=== PATIENT | female | born 1940 | race Caucasian/White ===

== ENCOUNTER 2019-12-13 11:48 | Emergency (ER) | payer MEDICARE, OTHER ==
[~2019-12-13] VITALS: Ht 157.5 cm; Wt 86.9 kg
--- NOTE | 2019-12-13 12:12 | NUR ---
PT STATES "I HAVE HAD FIVE BLADDER INFECTIONS RECENTLY AND I THINK SOMETHING IS WRONG WITH MY KIDNEYS" PT WITH FLANK PAIN BILATERALLY. UNABLT TO PROVIDE UA AT THIS TIME
--- NOTE | 2019-12-13 12:18 | NUR ---
EDMD IN TO EVAL PT
--- NOTE | 2019-12-13 12:32 | NUR ---
PT GIVEN WATER PER ERMD OK.
[2019-12-13 12:58] LABS: BASOPHILS % (AUTO) 1 % (0-1); EOSINOPHILS % (AUTO) 5 % (1-7); LYMPHOCYTES % (AUTO) 17 % (22-44); MEAN CORPUSCULAR HEMOGLOBIN 27.2 pg (27.0-34.8); MEAN CORPUSCULAR HGB CONC 32.3 g/dL (32.4-35.8); MEAN PLATELET VOLUME 9.1 fL (7.4-10.4); MONOCYTES % (AUTO) 10 % (2-9); NEUTROPHILS % (AUTO) 68 % (42-75); PLATELET COUNT 181 x10^3/uL (130-400); RED BLOOD COUNT 4.62 x10^6/uL (3.82-5.3); RED CELL DISTRIBUTION WIDTH 15.3 % (9.6-15.2)
[2019-12-13 13:00] LABS: MD NO
[2019-12-13 13:09] LABS: ALBUMIN 3.6 g/dL (3.4-5.0); ANION GAP 6 mmol/L (5-15); CALCIUM 9.2 mg/dL (8.5-10.1); CHLORIDE 107 mmol/L (98-107); CREATININE 1.05 mg/dL (0.55-1.02)
[2019-12-13 13:58] VITALS: BP 162/73
[2019-12-13 14:07] LABS: MICROSCOPIC INDICATED
== END 2019-12-13 15:54 | disposition home or self-care (01) ==
LOC: ED 12:55
DX: N30.00 Acute cystitis without hematuria (principal); I10 Essential (primary) hypertension; E11.9 Type 2 diabetes mellitus without complications; Z85.528 Personal history of other malignant neoplasm of kidney
CPT/HCPCS: 36415; 80048; 81001; 82040; 85025; 87086; 99283

== ENCOUNTER 2020-08-02 09:12 | Outpatient (CLI) | payer MEDICARE ==
[~2020-08-02 09:12] MED LIST: DULA0.75 SQ; ERTA1VIA4 IV; GABA-826 PO; INSU100I13 SQ-INSULIN; LEVO137T2 PO; LINE600T15 PO; MERO1PIG IV; SIMV40TA20 PO; SITA1TBM7 PEG
[2020-08-02] MEDS ORDERED: DULA0.75 INJ (10:01)
[2020-08-02] MEDS ORDERED: INSU100I13 SC (10:01)
[2020-08-02] MEDS ORDERED: LEVO137T3 PO (10:01)
[2020-08-02] MEDS ORDERED: MAGN250T8 PO (10:01)
[2020-08-02] MEDS ORDERED: CRAN500T PO (10:01)
[2020-08-02] MEDS ORDERED: SITA1TBM4 PO (10:01)
[2020-08-02] MEDS ORDERED: GABA100C PO (10:01)
[2020-08-02] MEDS ORDERED: ERTA1VIA4 IV (10:01)
[2020-08-02] MEDS ORDERED: Elderberry PO (10:01)
[2020-08-02] MEDS ORDERED: ZINC50CA PO (10:01)
[2020-08-02] MEDS ORDERED: ACET-2065 PO (10:01)
[2020-08-02] MEDS ORDERED: Vitamin B12 PO (10:01)
[2020-08-02] MEDS ORDERED: CHOL10003 PO (10:01)
[2020-08-02] MEDS ORDERED: ASCO100018 PO (10:01)
[2020-08-02 10:25] LABS: INTERNATIONAL NORMALIZED RATIO 1.08 (0.93-1.1); PROTHROMBIN TIME 11.5 Seconds (9.6-11.5)
[2020-08-02 10:26] LABS: ALBUMIN 3.4 g/dL (3.4-5.0); ANION GAP 9 mmol/L (5-15); CALCIUM 9.2 mg/dL (8.5-10.1); CHLORIDE 108 mmol/L (98-107)
[2020-08-02 10:30] LABS: ALANINE AMINOTRANSFERASE 38 U/L (12-78); ALKALINE PHOSPHATASE 108 U/L (45-117); BILIRUBIN,TOTAL 0.3 mg/dL (0.2-1.0); CREATININE 0.81 mg/dL (0.55-1.02); TOTAL PROTEIN 7.5 g/dL (6.4-8.2)
== END 2020-08-02 23:59 | disposition home or self-care (01) ==
LOC: STAR 09:12
PROVIDERS: ATTEND Urology
DX: Z01.818 Encounter for other preprocedural examination (principal); N20.1 Calculus of ureter; I25.2 Old myocardial infarction; R94.31 Abnormal electrocardiogram [ECG] [EKG]; Z20.822 Contact with and (suspected) exposure to COVID-19
CPT/HCPCS: 36415; 80053; 85610; 93005; U0003; U0005

== ENCOUNTER 2020-08-07 10:03 | Day surgery (SDC) | payer MEDICARE ==
[~2020-08-07] VITALS: Ht 157.5 cm; Wt 82.8 kg
[~2020-08-07 10:03] MED LIST changes: +ACET-2065 PO; +ASCO100018 PO; +CHOL10003 PO; +CRAN500T PO; +DULA0.75 INJ; +Elderberry PO; +GABA100C PO; +INSU100I13 SC; +LEVO137T3 PO; +MAGN250T8 PO; +OMNIPAQUE 350 MG/ML, 50 ML BOTTLE ONE; +SITA1TBM4 PO; +Vitamin B12 PO; +ZINC50CA PO
[2020-08-07] MEDS ORDERED: FENTANYL PF 250 MCG/5ML ONE (10:23)
[2020-08-07] MEDS ORDERED: ONDANSETRON 2MG/ML, 2ML IVPush PRN (10:30)
[2020-08-07] MEDS ORDERED: hydrALAzine 20 MG/ML, 1ML IV PRN (10:30)
[2020-08-07] MEDS ORDERED: LORazepam 2 MG/ML, 1ML IVPush PRN (10:30)
[2020-08-07] MEDS ORDERED: ACETAMINOPHEN 325 MG TABLET PO PRN (10:30)
[2020-08-07] MEDS ORDERED: HALOPERIDOL 5 MG/ML IV PRN (10:30)
[2020-08-07] MEDS ORDERED: LABETALOL 5MG/ML, 20ML IV PRN (10:30)
[2020-08-07] MEDS ORDERED: PROMETHAZINE 25 MG/ML, 1ML IVPush PRN (10:30)
[2020-08-07] MEDS ORDERED: HYDROmorphone 1 MG/ML, 1ML INJ IVPush PRN (10:30)
[2020-08-07 10:41] VITALS: BP 137/83
[2020-08-07] MEDS ORDERED: CHLORHEXIDINE 15 ML UDC ONE (10:43)
[2020-08-07] MEDS ORDERED: DEXTROSE 50%, 50ML SYRINGE ONE (10:56)
[2020-08-07] MEDS ORDERED: CHLORHEXIDINE 15 ML UDC PO ONE (11:00)
[2020-08-07] MEDS ORDERED: LACTATED RINGERS 1,000 ML IV SCH (11:00)
[2020-08-07] MEDS ORDERED: DEXTROSE 50%, 50ML SYRINGE IVPush ONE (11:00)
[2020-08-07] MEDS ORDERED: ONDANSETRON 2MG/ML, 2ML ONE (11:30)
[2020-08-07] MEDS ORDERED: PROPOFOL 10 MG/ML, 20ML ONE (11:30)
[2020-08-07] MEDS ORDERED: METHOCARBAMOL 1,000 MG in DEXTROSE 5% 100 ML IV PRN (12:00)
[2020-08-07] MEDS ORDERED: hydrALAzine 20 MG/ML, 1ML ONE (12:39)
[2020-08-07] MEDS ORDERED: FENTANYL PF 100 MCG/2ML ONE ×2 (12:51→13:28)
[2020-08-07] MEDS ORDERED: ACETAMINOPHEN 650 MG/20.3 ML UDC ONE (12:51)
[2020-08-07] MEDS ORDERED: OXYcodone 5 MG/5 ML ORAL.SOL UDC ONE ×2 (12:51→13:34)
[2020-08-07] MEDS: OXYcodone 5 MG/5 ML ORAL.SOL UDC PO PRN ×2 (12:53→13:40)
[2020-08-07] MEDS: FENTANYL PF 100 MCG/2ML IV PRN ×3 (13:03→13:30)
== END 2020-08-07 14:25 | disposition home or self-care (01) ==
LOC: OUT 10:03
PROVIDERS: ATTEND Urology
DX: N20.1 Calculus of ureter (principal); N13.30 Unspecified hydronephrosis; N81.6 Rectocele; N81.10 Cystocele, unspecified; I10 Essential (primary) hypertension; E03.9 Hypothyroidism, unspecified; E78.00 Pure hypercholesterolemia, unspecified; E11.9 Type 2 diabetes mellitus without complications; Z88.0 Allergy status to penicillin; Z79.899 Other long term (current) drug therapy; Z72.89 Other problems related to lifestyle; Z90.710 Acquired absence of both cervix and uterus; Z90.5 Acquired absence of kidney; Z98.890 Other specified postprocedural states
CPT/HCPCS: 52310; 74420; 82962; C1769; J0360; J2405; J2704; J3010; J7120; Q9967